=== PATIENT | male | born 1935 | race Caucasian/White ===

== ENCOUNTER 2017-08-08 11:08 | Emergency (ER) | payer OTHER ==
[2017-08-08 11:32] VITALS: BP 147/88; PULSE 97; TEMP 97; BMI 21.1
[2017-08-08] MEDS ORDERED: TETANUS AND DIPHTHERIA TOXOID 0.5 ML DISP.SYRIN IM ONE (13:01)
--- NOTE | 2017-08-08 13:20 | PDOC ---
History of Present Illness - General Chief Complaint: Injury Stated Complaint: FALL/ LACERATION TO BACK OF HEAD Time Seen by Provider: 08/08/17 12:16 History Source: Patient, Family Exam Limitations: Language Barrier - History of Present Illness Initial Comments: 08/08/17 14:04 This 81 yr old male who lives with and daughter has a usual unsteady gait with walking with cane. Pt fell backwards in kitchen hitting head causing a small laceration. He is not on any anticoagulations. He does not have any LOC , mental status changes, major bleeding. Unknown fo rlast TD. Occurred: reports: last week Past History - Past Medical History Allergies/Adverse Reactions: Allergies Allergy/AdvReac Type Severity Reaction Status Date / Time No Known Allergies Allergy Verified 08/08/17 11:32 COPD: No HTN: Yes Other medical history: parkinsons - Suicide/Smoking/Psychosocial Hx Smoking History: Never smoked Review of Systems - Review of Systems Able to Perform ROS?: Yes HEENTM: Yes: See HPI. No: Eye Pain, Nose Congestion Respiratory: No: Symptoms reported Cardiac (ROS): No: Symptoms Reported ABD/GI: No: Symptoms Reported : No: Symptoms Reported Musculoskeletal: No: Symptoms Reported Integumentary: Yes: See HPI. No: Symptoms Reported Neurological: Yes: See HPI (small 2 in lack to right pariteal area. ). No: Headache, Numbness *Physical Exam - Vital Signs Last Vital Signs Temp Pulse Resp BP Pulse Ox 97 F L 97 H 18 147/88 98 08/08/17 11:28 08/08/17 11:28 08/08/17 11:28 08/08/17 11:28 08/08/17 11:28 - Physical Exam General Appearance: Yes: Appropriately Dressed HEENT: positive: Normal Voice Neck: positive: Trachea midline Respiratory/Chest: positive: Lungs Clear Cardiovascular: positive: Regular Rhythm, Regular Rate Gastrointestinal/Abdominal: positive: Flat, Soft Extremity: positive: Normal Inspection Integumentary: positive: Normal Color, Dry, Warm Neurologic: positive: Fully Oriented, Alert, Other (small linear lack to the right parietal region) ED Treatment Course - LABORATORY CBC & Chemistry Diagram: 08/08/17 13:11 08/08/17 13:11 - RADIOLOGY Radiology Studies Ordered: Category Date Time Status CERVICAL SPINE CT W/O CONTR [CT] Stat CT Scan 08/08/17 12:[address] WITHOUT CONTRAST [CT] Stat CT Scan 08/08/17 12:23 Ordered Medical Decision Making - Medical Decision Making 08/08/17 15:16 Pt seen and examned. Pt underwnet a HCT which is neg for acute injury or bleed. Pt laceration cleaned and 3 kendall placed. Pt neuro status stable. *DC/Admit/Observation/Transfer Diagnosis at time of Disposition: Head injury due to trauma Qualifiers: Encounter type: initial encounter Qualified Code(s): S09.90XA - Unspecified injury of head, initial encounter - Discharge Dispostion Disposition: HOME Condition at time of disposition: Stable Admit: No - Referrals Referrals: Yulisa King MD [Primary Care Provider] - - Patient Instructions Printed Discharge Instructions: Soft Tissue Pain (Alternative Therapy) Additional Instructions: Discharge instructions 1. Follow up with your doctor in one week for staple removal 2. You may wash hair but do not pick or pull at kendall. 3. monitor for any changes to mental status, signs of infection or headaches with vomiting. Return to ER - Post Discharge Activity
[2017-08-08 13:30] LABS: BASO % 0.4 % (0-2.0); EOS % 0.6 % (0-4.5); LYMPH # 1.1; MCH 30.5 pg (25.7-33.7); MCHC 32.7 g/dl (32.0-35.9); MEAN CELL VOLUME 93.3 fl (80-96); MEAN PLT VOLUME 9.2 fl (7.5-11.1); MONO # 0.9 #; NEUT # 5.1 #; NEUT % 71.7 % (42.8-82.8); PLATELET COUNT 128 K/MM3 (134-434); RDW 14.2 % (11.9-15.9); WHITE BLOOD COUNT 7.1 K/mm3 (4.0-10.0)
[2017-08-08 13:53] LABS: ALK PHOS 111 U/L (45-117)
[2017-08-08 13:58] LABS: ALBUMIN 3.8 g/dl (3.4-5.0); ANION GAP 5 (8-16); BILIRUBIN,TOTAL 0.7 mg/dL (0.2-1.0); CALCIUM 8.7 mg/dL (8.5-10.1); CO2 30 mmol/L (21-32); CREATININE 1.1 mg/dL (0.7-1.3); GLUCOSE,RANDOM 99 mg/dL (74-106); SGOT/AST 18 U/L (15-37); SGPT/ALT 14 U/L (12-78); TOT PROT 8.1 g/dl (6.4-8.2)
== END 2017-08-08 14:20 | disposition home or self-care (01) ==
LOC: JER 11:08
PROC: 0HQ0XZZ Repair Scalp Skin, External Approach (ICD-10-PCS; principal; 2017-08-08)
PROC: 3E0234Z Introduction of Serum, Toxoid and Vaccine into Muscle, Percutaneous Approach (ICD-10-PCS; 2017-08-08)
DX: S01.91XA Laceration without foreign body of unspecified part of head, initial encounter (principal); S09.90XA Unspecified injury of head, initial encounter; W18.39XA Other fall on same level, initial encounter; Y93.89 Activity, other specified; Y92.000 Kitchen of unspecified non-institutional (private) residence as the place of occurrence of the external cause; I10 Essential (primary) hypertension; R26.2 Difficulty in walking, not elsewhere classified
CPT/HCPCS: 36415; 70450-TC; 72125-TC; 80053; 85025; 99281-25

== ENCOUNTER 2017-08-13 10:02 | Emergency (ER) | payer OTHER ==
[2017-08-13 10:21] VITALS: BMI 21.3
[2017-08-13] MEDS ORDERED: SODIUM CHLORIDE 500 ML IV STA (11:11)
--- NOTE | 2017-08-13 11:12 | PDOC ---
*Physical Exam - Vital Signs Last Vital Signs Temp Pulse Resp BP Pulse Ox 98.5 F 97 H 20 143/82 96 08/13/17 10:18 08/13/17 10:18 08/13/17 10:18 08/13/17 10:18 08/13/17 10:18 ED Treatment Course - LABORATORY CBC & Chemistry Diagram: 08/13/17 11:44 08/13/17 11:44 Medical Decision Making - Medical Decision Making 08/13/17 11:11 This is 81 yo M h/o Parkinson's dz p/w worsening generalized weakness with increasing falls over the past 2 weeks. Taken off carbidopa but resumed this 10 days ago Laboratory Tests 08/13/17 08/13/17 11:44 11:44 WBC 6.4 Hgb 11.7 Hct 35.3 L Plt Count 129 L Potassium 3.6 BUN 15 D Creatinine 1.1 Troponin I 0.02 Pt seen by Midlevel Provider under my direct supervision Pt interviewed and examined Ancillary studies reviewed CT head and cervical spine negative for fracture or intracranial hemorrhage EKG: Sinus rhythm, rate of 82 bpm, left axis deviation, LVH I agree with plan as outlined by Midlevel Provider 08/13/17 14:32 Clinical Impression: frequent falls, initial presentation *DC/Admit/Observation/Transfer Diagnosis at time of Disposition: Falls frequently, Parkinson disease - Discharge Dispostion Disposition: HOME Condition at time of disposition: Good - Referrals Referrals: Yulisa King MD [Primary Care Provider] - - Patient Instructions Printed Discharge Instructions: DI for Parkinson's Disease Additional Instructions: At this time the CAT scan urine and labs were negative. I do recommend keeping patient's environment safe and utilizing wheelchair when needed. [place] also follow-up with the neurologist as discussed. If symptoms worsen prior to your follow-up you may return to the ED at any given time. - Post Discharge Activity
[2017-08-13 11:54] LABS: BASO % 0.5 % (0-2.0); EOS % 1.8 % (0-4.5); HEMATOCRIT 35.3 % (35.4-49); HEMOGLOBIN 11.7 GM/dL (11.7-16.9); LYMPH % 19.6 % (8-40); MCH 30.4 pg (25.7-33.7); MEAN CELL VOLUME 92.2 fl (80-96); MEAN PLT VOLUME 8.9 fl (7.5-11.1); MONO % 15.4 % (3.8-10.2); NEUT % 62.7 % (42.8-82.8); PLATELET COUNT 129 K/MM3 (134-434); RBC 3.83 M/mm3 (4.00-5.60); WHITE BLOOD COUNT 6.4 K/mm3 (4.0-10.0)
[2017-08-13 12:22] LABS: ALBUMIN 3.2 g/dl (3.4-5.0); ALK PHOS 102 U/L (45-117); ANION GAP 11 (8-16); BILIRUBIN,TOTAL 0.7 mg/dL (0.2-1.0); BLOOD UREA NITROGEN 15 mg/dL (7-18); CALCIUM 8.6 mg/dL (8.5-10.1); CHLORIDE 104 mmol/L (98-107); CO2 26 mmol/L (21-32); CREATININE 1.1 mg/dL (0.7-1.3); GLUCOSE,RANDOM 179 mg/dL (74-106); MAGNESIUM 1.8 mg/dL (1.8-2.4); POTASSIUM 3.6 mmol/L (3.5-5.1); SGOT/AST 19 U/L (15-37); SGPT/ALT 8 U/L (12-78); SODIUM 141 mmol/L (136-145)
--- NOTE | 2017-08-13 12:35 | PDOC ---
History of Present Illness - General Chief Complaint: Weakness Stated Complaint: WEAKNESS Time Seen by Provider: 08/13/17 10:30 History Source: Patient Exam Limitations: No Limitations - History of Present Illness Initial Comments: 08/13/17 11:34 81-year-old male presents the emergency room with complaints of worsening generalized weakness with increasing falls over the past 2 weeks. Patient states history of Parkinson and recently was taken off the carbidopa by the neurologist at [facility] to evaluate patient's baseline since he just recently wrote relocated here from [place] a few months ago. Patient states the past 10 days has been placed back on the medication and has it titrating up every 2 weeks. and daughter states did not contact the neurologist of the increasing fall since the . Patient was here on the requiring him to receive kendall to the occipital area. Patient has no complaints of chest pain, nausea, visual changes, fever or chills. Patient does state 2 days ago fell in the kitchen causing him to strike the back of his head onto the surgery to bottom but denies any LOC or headache presently. Patient states yesterday was also walking when his legs would not move causing him to fall onto his knees and then his left side. Timing/Duration: getting worse Severity: moderate Associated Symptoms: reports: weakness Past History - Travel Traveled outside of the country in the last 30 days: No - Past Medical History Allergies/Adverse Reactions: Allergies Allergy/AdvReac Type Severity Reaction Status Date / Time No Known Allergies Allergy Verified 08/13/17 10:18 Home Medications: Ambulatory Orders Carbidopa/Levodopa 25/250 [Sinemet 25/250 -] 1 each PO TID 08/13/17 Lisinopril 20 mg PO DAILY 08/13/17 Risperidone 0.5 mg PO HS 08/13/17 COPD: No HTN: Yes Other medical history: Parkinson's disease - Suicide/Smoking/Psychosocial Hx Smoking History: Never smoked Patient Lives Alone: No Lives with/in: spouse/SO Review of Systems - Review of Systems Able to Perform ROS?: Yes Constitutional: Yes: Weakness HEENTM: No: Symptoms Reported Respiratory: No: Symptoms reported Cardiac (ROS): No: Lightheadedness ABD/GI: No: Symptoms Reported : No: Symptoms Reported Musculoskeletal: Yes: Muscle Weakness, Joint Stiffness Integumentary: No: Symptoms Reported Neurological: Yes: Weakness Endocrine: No: Symptoms Reported Hematologic/Lymphatic: No: Symptoms Reported *Physical Exam - Vital Signs Last Vital Signs Temp Pulse Resp BP Pulse Ox 98.5 F 97 H 20 143/82 96 08/13/17 10:18 08/13/17 10:18 08/13/17 10:18 08/13/17 10:18 08/13/17 10:18 - Physical Exam General Appearance: Yes: Nourished, Appropriately Dressed. No: Apparent Distress HEENT: positive: EOMI, CHICHI, TMs Normal, Pharynx Normal (dry) Neck: positive: Supple Respiratory/Chest: positive: Lungs Clear, Normal Breath Sounds. negative: Chest Tender, Respiratory Distress, Accessory Muscle Use Cardiovascular: positive: Regular Rhythm, Regular Rate. negative: Murmur Vascular Pulses: Dorsalis-Pedis (R): 2+, Doralis-Pedis (L): 2+ Gastrointestinal/Abdominal: positive: Soft. negative: Tenderness Integumentary: positive: Normal Color, Warm, Moist. negative: Swelling, Ecchymosis Neurologic: positive: Motor Strength 5/5 (controlled active movements of extremities x 4) Heart Score/ECG Review - ECG Intrepretation Rhythm: Regular Rhythm (rate 80 . normal sinus rhythm.left axis deviation) ED Treatment Course - LABORATORY CBC & Chemistry Diagram: 08/13/17 11:44 08/13/17 11:44 - ADDITIONAL ORDERS Additional order review: 08/13/17 11:44 RBC 3.83 L MCV 92.2 MCHC 33.0 RDW 14.0 MPV 8.9 Neutrophils % 62.7 Lymphocytes % 19.6 D Monocytes % 15.4 H Eosinophils % 1.8 D Basophils % 0.5 - RADIOLOGY Radiology Studies Ordered: Category Date Time Status CERVICAL SPINE CT W/O CONTR [CT] Stat CT Scan 08/13/17 11:[address] WITHOUT CONTRAST [CT] Stat CT Scan 08/13/17 11:11 Ordered CHEST X-RAY PORTABLE* [RAD] Stat Radiology 08/13/17 11:11 Completed Medical Decision Making - Medical Decision Making 08/13/17 11:38 Patient will complaints of frequent falls and continual weakness . patient states was recently placed back on carbidopa 10 days ago after being off it to assess baseline. Patient will have an increase of his carbidopa tonight. Patient concerning for intracranial bleed due to closed head injury 2 days ago after hitting the refrigerator. Patient ordered for labs, IV fluids, urine and CT of the head and neck. Patient also ordered a EKG. Explained to the daughter that she needs to contact her neurologist and updated him up on patient's weakness over the past 2 weeks 08/13/17 12:[address] shows no acute cranial hemorrhage or skull fracture. There is no evidence of acute fracture or traumatic subluxation of the cervical spine. Laboratory Tests 08/13/17 08/13/17 11:44 11:44 WBC 6.4 Hgb 11.7 Hct 35.3 L Plt Count 129 L Sodium 141 Potassium 3.6 Chloride 104 Carbon Dioxide 26 Anion Gap 11 BUN 15 D Creatinine 1.1 Creat Clearance w eGFR > 60 Random Glucose 179 H D Magnesium 1.8 Total Bilirubin 0.7 AST 19 ALT 8 L D Albumin 3.2 L 08/13/17 16:25 Laboratory Tests 08/13/17 11:13 Urine Blood 3+ H Urine Nitrite Negative Urine Urobilinogen Negative Patient will be discharged home with prescription for wheelchair as request from . As per daughter patient has an appointment with the neurologist next week and will be increased on his carbidopa tonight *DC/Admit/Observation/Transfer Diagnosis at time of Disposition: Falls frequently, Parkinson disease - Discharge Dispostion Disposition: HOME Condition at time of disposition: Good - Referrals Referrals: Yulisa King MD [Primary Care Provider] - - Patient Instructions Printed Discharge Instructions: DI for Parkinson's Disease Additional Instructions: At this time the CAT scan urine and labs were negative. I do recommend keeping patient's environment safe and utilizing wheelchair when needed. [place] also follow-up with the neurologist as discussed. If symptoms worsen prior to your follow-up you may return to the ED at any given time. - Post Discharge Activity
[2017-08-13] MEDS ORDERED: ACETAMINOPHEN 325 MG TABLET (FP) PO ONE (13:12)
--- NOTE | 2017-08-13 13:12 | EKG ---
Test Reason : Blood Pressure : / mmHG Vent. Rate : 082 BPM Atrial Rate : 082 BPM P-R Int : 202 ms QRS Dur : 116 ms QT Int : 364 ms P-R-T Axes : 041 -44 092 degrees QTc Int : 425 ms NORMAL SINUS RHYTHM LEFT AXIS DEVIATION LEFT VENTRICULAR HYPERTROPHY WITH QRS WIDENING AND REPOLARIZATION ABNORMALITY ANTEROSEPTAL INFARCT , AGE UNDETERMINED ABNORMAL ECG NO PREVIOUS ECGS AVAILABLE Confirmed by LEIDA PANIAGUA MD ([id number]) on 08/13/2017 1:12:18 PM Referred By: Confirmed By:LEIDA PANIAGUA MD
[2017-08-13] MEDS ORDERED: ACETAMINOPHEN 325 MG TABLET (FP) ONE (13:19)
[2017-08-13 15:48] LABS: URINE APPEARANCE CLEAR; URINE BILIRUBIN NEGATIVE (NEGATIVE); URINE BLOOD 3+ (NEGATIVE); URINE COLOR LTYELLOW; URINE GLUCOSE (UA) NEGATIVE (NEGATIVE); URINE KETONE NEGATIVE (NEGATIVE); URINE LEUK ESTERASE NEGATIVE (NEGATIVE); URINE NITRITE NEGATIVE (NEGATIVE); URINE PROTEIN NEGATIVE (NEGATIVE); URINE UROBILINOGEN NEGATIVE mg/dL (0.2-1.0)
[2017-08-13] MEDS ORDERED: PRESCRIPTION PAD 1 EACH EACH NR ONE (16:47)
[2017-08-13 17:40] VITALS: BP 130/80; PULSE 86; TEMP 98.2
== END 2017-08-13 17:30 | disposition home or self-care (01) ==
LOC: JER 10:02
PROC: 3E0337Z Introduction of Electrolytic and Water Balance Substance into Peripheral Vein, Percutaneous Approach (ICD-10-PCS; principal; 2017-08-13)
DX: G20 Parkinson's disease (principal); Z91.81 History of falling; I10 Essential (primary) hypertension
CPT/HCPCS: 36415; 70450-TC; 71045-TC; 72125-TC; 80053; 81003; 81015; 82550; 83735; 84484; 85025; 87086; 93005; 93010; 99284-25

== ENCOUNTER 2017-08-16 13:49 | Emergency (ER) | payer OTHER ==
[2017-08-16 13:54] VITALS: BP 157/96; PULSE 70; TEMP 98; BMI 21.7
--- NOTE | 2017-08-16 14:45 | PDOC ---
Suture Removal/Wound Check HPI - History of Present Illness Chief Complaint: Suture/Staple Removal(Here) Stated Complaint: STAPLE/SUTURE REMOVAL (HERE) Time Seen by Provider: 08/16/17 14:36 History Source: Yes: Family Date of Last ED visit: 08/13/17 (kendall placed 08/08/17) - Previous ED Treatment Type of procedure performed on last visit: Yes: Laceration Repair Tetanus Immunization: Yes: Given at last ED visit Antibiotics Prescribed: No - Onset of Previous Treatment Date of Occurence: 08/08/17 Comment:: 08/16/17 14:47 Family denies fever, chills, nausea, vomiting, diarrhea, or any swelling, discharge, warmth, or pain to site of injury. 3 kendall removed without complication. Edges well approximated, site of repair clean, intact and with no erythema, discharge, or swelling to site of lac. 08/16/17 14:50 Past History - Past Medical History Allergies/Adverse Reactions: Allergies Allergy/AdvReac Type Severity Reaction Status Date / Time No Known Allergies Allergy Verified 08/16/17 13:54 Home Medications: Ambulatory Orders Carbidopa/Levodopa 25/250 [Sinemet 25/250 -] 1 each PO TID 08/13/17 Lisinopril 20 mg PO DAILY 08/13/17 Risperidone 0.5 mg PO HS 08/13/17 COPD: No HTN: Yes - Suicide/Smoking/Psychosocial Hx Smoking History: Never smoked *DC/Admit/Observation/Transfer Diagnosis at time of Disposition: Removal of kendall - Discharge Dispostion Disposition: HOME Condition at time of disposition: Stable Admit: No - Referrals Referrals: Yulisa King MD [Primary Care Provider] - - Patient Instructions Printed Discharge Instructions: DI for Suture Removal - Post Discharge Activity
== END 2017-08-16 14:51 | disposition home or self-care (01) ==
LOC: JERFT 13:49
DX: Z48.02 Encounter for removal of sutures (principal)
CPT/HCPCS: 99281-25